=== PATIENT | male | born 2000 | race Hispanic/Latino ===

== ENCOUNTER 2019-09-12 17:11 | Emergency (ER) | payer OTHER ==
[2019-09-12] MEDS ORDERED: FAMOTIDINE 20 MG TAB ONE (18:29)
[2019-09-12] MEDS ORDERED: DIPHENHYDRAMINE 25 MG TAB/CAP ONE (18:29)
[2019-09-12] MEDS ORDERED: predniSONE 20 MG TAB ONE (18:30)
[2019-09-12 18:56] VITALS: BP 134/76; TEMP 98; O2SAT 98
--- NOTE | 2019-09-12 19:59 | EDPHYS ---
Physician Documentation [facility] Name: Garry Campos Age: 19 yrs Sex: Male : 2000 Arrival Date: 09/12/2019 Time: 17:12 Bed 14 Private MD: ED Physician Mary Hodges HPI: 09/12 18:20 This 19 yrs old Male presents to ER via Ambulatory with complaints of Hives. la1 18:20 The patient's rash thought to be caused by Contact allergy. The rash is located on the la1 body diffusely. The rash can be described as patchy, raised, urticarial. Onset: The symptoms/episode began/occurred this morning. Associated signs and symptoms: Pertinent positives: itching, Pertinent negatives: fever, nausea, swelling of lips, swelling of throat, swelling of tongue, vomiting, wheezing. Severity of symptoms: At their worst the symptoms were mild. The patient has not experienced similar symptoms in the past. Historical: - Allergies: 17:33 No Known Allergies; sv - PMHx: 17:33 None; sv - PSHx: 17:33 None; sv - Immunization history:: Flu vaccine is not up to date. - Social history:: Smoking status: Patient/guardian denies using tobacco. - Ebola Screening: : No symptoms or risks identified at this time. ROS: 18:21 Constitutional: Negative for fever, chills, and weight loss, Eyes: Negative for injury, la1 pain, redness, and discharge, ENT: Negative for injury, pain, and discharge, Neck: Negative for injury, pain, and swelling, Cardiovascular: Negative for chest pain, palpitations, and edema, Respiratory: Negative for shortness of breath, cough, wheezing, and pleuritic chest pain, Abdomen/GI: Negative for abdominal pain, nausea, vomiting, diarrhea, and constipation, Back: Negative for injury and pain, : Negative for injury, bleeding, discharge, and swelling, MS/Extremity: Negative for injury and deformity. 18:21 Skin: Positive for rash, diffusely. Exam: 18:21 Constitutional: This is a well developed, well nourished patient who is awake, alert, la1 and in no acute distress. Head/Face: Normocephalic, atraumatic. Eyes: Pupils equal round and reactive to light, extra-ocular motions intact. Periorbital areas with no swelling, redness, or edema. ENT: Mucous membranes moist. Neck: No Meningismus. Chest/axilla: Normal chest wall appearance and motion. Nontender with no deformity. No lesions are appreciated. Cardiovascular: Regular rate and rhythm with a normal S1 and S2. No gallops, murmurs, or rubs. Normal PMI, no JVD. No pulse deficits. Respiratory: Lungs have equal breath sounds bilaterally, clear to auscultation. No rales, rhonchi or wheezes noted. No increased work of breathing, no retractions or nasal flaring. Abdomen/GI: Soft, non-tender, with normal bowel sounds. No distension or tympany. No guarding or rebound. No evidence of tenderness throughout. 18:21 Skin: Appearance: Color: normal in color, pink, Temperature: normal temperature, rash a mild rash is noted, rash can be described as raised, urticarial, urticaria, and is diffusely located. Vital Signs: 17:33 BP 134 / 76; Pulse 80; Resp 16; Temp 98; Pulse Ox 98% ; Weight 63.5 kg; Height 6 ft. 0 sv in. (182.88 cm); Pain 0/10; 17:33 Body Mass Index 18.99 (63.50 kg, 182.88 cm) sv MDM: 17:30 Patient medically screened. la1 18:23 Data reviewed: vital signs, nurses notes, and as a result, I will discharge patient. la1 Data interpreted: Pulse oximetry: on room air is 98 %. Interpretation: normal. Counseling: I had a detailed discussion with the patient and/or guardian regarding: the historical points, exam findings, and any diagnostic results supporting the discharge/admit diagnosis, the need for outpatient follow up, a teamcenter solution architect, a family practitioner, to return to the emergency department if symptoms worsen or persist or if there are any questions or concerns that arise at home. Special discussion: Based on the history and exam findings, there is no indication for further emergent testing or inpatient evaluation. I discussed with the patient/guardian the need to see the teamcenter solution architect for further evaluation of the symptoms. I discussed with the patient/guardian the need to see the primary care provider for further evaluation of the symptoms. I discussed with the patient/guardian that the patient's current presentation does not indicate dosing of antibiotics. They should follow-up with their primary care provider and return if the symptoms persist or progress. Administered Medications: 18:29 Drug: Benadryl 50 mg Route: PO; aj1 18:35 Follow up: Response: No adverse reaction aj1 18:29 Drug: predniSONE 40 mg Route: PO; aj1 18:34 Follow up: Response: No adverse reaction aj1 18:29 Drug: Pepcid 20 mg Route: PO; aj1 18:34 Follow up: Response: No adverse reaction aj1 Disposition: 09/12/19 18:24 Discharged to Home. Impression: Rash and other nonspecific skin eruption. - Condition is Stable. - Discharge Instructions: Allergies, Adult, Rash, Ddze-im-Vqez, Allergies, Ends-bh-Ipcx. - Prescriptions for Benadryl 25 mg Oral Capsule - take 1 capsule by ORAL route every 6 hours As needed; 30 tablet. Prednisone 20 mg Oral Tablet - take 1 tablet by ORAL route once daily for 5 days; 5 tablet. Pepcid 20 mg Oral Tablet - take 1 tablet by ORAL route once daily for 10 days; 10 tablet. - Medication Reconciliation Form, Thank You Letter form. - Follow up: Private Physician; When: 2 - 3 days; Reason: Recheck today's complaints, Re-evaluation by your physician. Follow up: Emergency Department; When: As needed; Reason: Trouble breathing, Worsening of condition. Addendum: 09/23/2019 21:32 Co-signature as Attending Physician, Mary Hodges MD. m a2 Signatures: Natty Burton RN RN aj1 Aranza Hurtado RN RN Chase Willams, PASTE WORKER-C PASTE WORKER-[facility] Mary Hodges MD MD ma2 Corrections: (The following items were deleted from the chart) 09/12 18:38 18:24 09/12/2019 18:24 Discharged to Home. Impression: Rash and other nonspecific skin aj1 eruption. Condition is Stable. Forms are Medication Reconciliation Form, Thank You Letter, Antibiotic Education, Prescription Opioid Use. Follow up: Private Physician; When: 2 - 3 days; Reason: Recheck today's complaints, Re-evaluation by your physician. Follow up: Emergency Department; When: As needed; Reason: Trouble breathing, Worsening of condition. la1
--- NOTE | 2019-09-12 19:59 | ER ---
Nurse's Notes [facility] Name: Garry Campos Age: 19 yrs Sex: Male : 2000 Arrival Date: 09/12/2019 Time: 17:12 Bed 14 Private MD: Diagnosis: Rash and other nonspecific skin eruption Presentation: 09/12 17:32 Presenting complaint: Patient states: hives that started yesterday, denies any new use sv of medication, lotions, or soaps recently. Transition of care: patient was not received from another setting of care. Onset: The symptoms/episode began/occurred suddenly, 1 day(s) ago. Anaphylaxis evaluation, no signs or symptoms of anaphylaxis were noted. Onset of symptoms was September 11, 2019. Risk Assessment: Do you want to hurt yourself or someone else? Patient reports no desire to harm self or others. Initial Sepsis Screen: Does the patient meet any 2 criteria? No. Patient's initial sepsis screen is negative. Does the patient have a suspected source of infection? No. Patient's initial sepsis screen is negative. Care prior to arrival: None. 17:32 Method Of Arrival: Ambulatory sv 17:32 Acuity: KURT 5 sv 17:34 Note banker mason used ID#[id number]. sv Historical: - Allergies: 17:33 No Known Allergies; sv - PMHx: 17:33 None; sv - PSHx: 17:33 None; sv - Immunization history:: Flu vaccine is not up to date. - Social history:: Smoking status: Patient/guardian denies using tobacco. - Ebola Screening: : No symptoms or risks identified at this time. Screenin:30 Abuse screen: Denies threats or abuse. Denies injuries from another. Nutritional aj1 screening: No deficits noted. Tuberculosis screening: No symptoms or risk factors identified. Fall Risk None identified. Assessment: 17:30 General: Appears in no apparent distress. comfortable, Behavior is calm, cooperative, aj1 appropriate for age. Pain: Denies pain. Neuro: Level of Consciousness is awake, alert, obeys commands, Oriented to person, place, time, situation. Cardiovascular: Patient's skin is warm and dry. Respiratory: Airway is patent Respiratory effort is even, unlabored, Respiratory pattern is regular, symmetrical, Breath sounds are clear bilaterally. GI: No signs and/or symptoms were reported involving the gastrointestinal system. : No signs and/or symptoms were reported regarding the genitourinary system. EENT: No signs and/or symptoms were reported regarding the EENT system. Derm: Rash noted that is itchy, red, raised, urticaria. Musculoskeletal: No signs and/or symptoms reported regarding the musculoskeletal system. Circulation, motion, and sensation intact. 18:37 Reassessment: Patient appears in no apparent distress at this time. No changes from aj1 previously documented assessment. Patient and/or family updated on plan of care and expected duration. Pain level reassessed. Patient is alert, oriented x 3, equal unlabored respirations, skin warm/dry/pink. Vital Signs: 17:33 BP 134 / 76; Pulse 80; Resp 16; Temp 98; Pulse Ox 98% ; Weight 63.5 kg; Height 6 ft. 0 sv in. (182.88 cm); Pain 0/10; 17:33 Body Mass Index 18.99 (63.50 kg, 182.88 cm) sv ED Course: 17:12 Patient arrived in ED. as 17:12 Chase Willams FNP-C is PHCP. la1 17:12 Mary Hodges MD is Attending Physician. la1 17:30 Patient has correct armband on for positive identification. aj1 17:30 No provider procedures requiring assistance completed. aj1 17:33 Triage completed. sv 17:34 Arm band placed on. sv 18:25 Natty Burton RN is Primary Nurse. aj1 18:37 Patient did not have IV access during this emergency room visit. aj1 Administered Medications: 18:29 Drug: Benadryl 50 mg Route: PO; aj1 18:35 Follow up: Response: No adverse reaction aj1 18:29 Drug: predniSONE 40 mg Route: PO; aj1 18:34 Follow up: Response: No adverse reaction aj1 18:29 Drug: Pepcid 20 mg Route: PO; aj1 18:34 Follow up: Response: No adverse reaction aj1 Outcome: 18:24 Discharge ordered by . la1 18:38 Discharged to home ambulatory. aj1 18:38 Condition: good 18:38 Discharge instructions given to patient, Instructed on discharge instructions, follow up and referral plans. medication usage, Demonstrated understanding of instructions, follow-up care, medications, Prescriptions given X 3. 18:38 Patient left the ED. aj1 Signatures: Natty Burton RN RN aj1 Aranza Hurtado RN RN sv Martinez, Amelia as Attema, Lee, MIDDLE SCHOOL ENGLISH TEACHER-C [employer]LE SCHO[employer] ENGLISH TEACHER-[employer]1
== END 2019-09-12 18:38 | disposition home or self-care (01) ==
LOC: ER 17:11
DX: R21 Rash and other nonspecific skin eruption (principal)
CPT/HCPCS: 99283; J7512

== ENCOUNTER 2019-09-14 01:17 | Emergency (ER) | payer OTHER ==
[2019-09-14] MEDS ORDERED: PROMETHAZINE INJ 25 MG/ML AMP ONE (01:38)
[2019-09-14] MEDS ORDERED: DIPHENHYDRAMINE 50 MG/ML VIAL ONE (01:38)
[2019-09-14] MEDS ORDERED: dexAMETHasone 10 MG/ML VIAL ONE (01:38)
[2019-09-14] MEDS ORDERED: METHYLPREDNISOLONE 125 MG INJ ONE (01:38)
[2019-09-14] MEDS ORDERED: NA CHLORIDE 0.9% 1,000 ML ONE (01:38)
[2019-09-14] MEDS ORDERED: FAMOTIDINE 20 MG/2 ML VIAL IV ONE (01:39)
[2019-09-14] MEDS ORDERED: ALBUTEROL 2.5 MG/3 ML NEB SOL ONE (01:42)
--- NOTE | 2019-09-14 03:13 | ER ---
Nurse's Notes [facility] Name: Garry Campos Age: 19 yrs Sex: Male : 2000 Arrival Date: 09/14/2019 Time: :19 Bed 13 Private MD: Diagnosis: Urticaria, unspecified Presentation: 09/14 01:27 Presenting complaint: Patient states: he was seen here yesterday for the same thing, bb urticaria, but it is worse today, itching in throat, denies difficulty breathing. Transition of care: patient was not received from another setting of care. Onset: The symptoms/episode began/occurred suddenly. Anaphylaxis evaluation, no signs or symptoms of anaphylaxis were noted. Onset of symptoms was September 13, 2019. Risk Assessment: Do you want to hurt yourself or someone else? Patient reports no desire to harm self or others. Initial Sepsis Screen: Does the patient meet any 2 criteria? No. Patient's initial sepsis screen is negative. Does the patient have a suspected source of infection? No. Patient's initial sepsis screen is negative. Care prior to arrival: None. :27 Method Of Arrival: Ambulatory bb 01:27 Acuity: KURT 4 bb Triage Assessment: :30 General: Appears in no apparent distress. uncomfortable, Behavior is calm, cooperative, rr5 appropriate for age. Historical: - Allergies: : No Known Allergies; bb - Home Meds: : None [Active]; bb - PMHx: : None; bb - PSHx: : None; bb - Immunization history:: Adult Immunizations not up to date. - Social history:: Smoking status: Patient/guardian denies using tobacco. - Ebola Screening: : No symptoms or risks identified at this time. Screenin:30 Abuse screen: Denies threats or abuse. Denies injuries from another. Nutritional rr5 screening: No deficits noted. Tuberculosis screening: No symptoms or risk factors identified. Fall Risk IV access (20 points). Total Schafer Fall Scale indicates No Risk (0-24 pts). Assessment: 01:30 General: Appears in no apparent distress. comfortable, Behavior is calm, cooperative, rr5 appropriate for age. Pain: Denies pain. Neuro: Level of Consciousness is awake, alert, obeys commands, Oriented to person, place, time, situation, Appropriate for age. Cardiovascular: Capillary refill < 3 seconds Patient's skin is warm and dry. Respiratory: Airway is patent Respiratory effort is even, unlabored, Respiratory pattern is regular, symmetrical, Breath sounds are clear bilaterally. Denies shortness of breath. 01:30 GI: No signs and/or symptoms were reported involving the gastrointestinal system. : rr5 No signs and/or symptoms were reported regarding the genitourinary system. EENT: Reports itching on the throat. Derm: Skin temperature is warm Rash noted that is itchy, red, raised, urticaria, on chest, abdomen, right arm and left arm. Musculoskeletal: Circulation, motion, and sensation intact. Capillary refill < 3 seconds. 02:18 Reassessment: Patient appears in no apparent distress at this time. Patient is alert, rr5 oriented x 3, equal unlabored respirations, skin warm/dry/pink. reassess by ED provider still for observation. Patient states feeling better. Patient states symptoms have improved. 03:30 Reassessment: Patient appears in no apparent distress at this time. Patient is alert, rr5 oriented x 3, equal unlabored respirations, skin warm/dry/pink. rashes subsided, much better compare before as stated by the patient and veneer trimmer. discharge instruction given and explained without complaints made. denies any . Patient states feeling better. Patient states symptoms have improved. Vital Signs: 01:29 BP 148 / 87; Pulse 74; Resp 14 S; Temp 98.4(O); Pulse Ox 100% on R/A; Weight 63.5 kg bb (R); Height 6 ft. 0 in. (182.88 cm) (R); Pain 6/10; 02:30 BP 125 / 70; Pulse 70; Resp 16; Pulse Ox 98% on R/A; rr5 03:11 BP 112 / 60; Pulse 80; Resp 18; Pulse Ox 98% on R/A; tl2 03:40 BP 115 / 75; Pulse 75; Resp 19; Temp 98; Pulse Ox 99% on R/A; rr5 01:29 Body Mass Index 18.99 (63.50 kg, 182.88 cm) ED Course: 00:35 Inserted saline lock: 20 gauge in right antecubital area, using aseptic technique. rr5 ,using aseptic technique. inserted by lili VICKERS Blood collected. 00:35 No provider procedures requiring assistance completed. rr5 01:19 Patient arrived in ED. cl3 01:21 Hilaria Devine FNP-C is [facility]. snw 01:22 Gerard Bravo MD is Attending Physician. snw 01:29 Triage completed. bb 01:29 Arm band placed on Patient placed in an exam room, on a stretcher, on pulse oximetry. bb Family accompanied patient. 01:30 Patient has correct armband on for positive identification. Placed in gown. Bed in low rr5 position. Call light in reach. Side rails up X2. 01:30 Pulse ox on. NIBP on. rr5 01:32 Edouard Corado RN is Primary Nurse. rr5 03:35 IV discontinued, intact, bleeding controlled, No redness/swelling at site. Pressure rr5 dressing applied. Administered Medications: 01:35 CANCELLED (other intervention): Albuterol HFA Inhaler 2 puffs Inhalation once snw 01:47 Drug: NS 0.9% 1000 ml Route: IV; Rate: 1 bolus; Site: right antecubital; tl2 03:00 Follow up: Response: No adverse reaction; IV Status: Completed infusion; IV Intake: rr5 1000ml 01:47 Drug: Phenergan 12.5 mg Route: IVP; Site: right antecubital; tl2 02:50 Follow up: Response: No adverse reaction; 025 rr5 01:47 Drug: SOLU-Medrol 125 mg Route: IVP; Site: right antecubital; tl2 02:50 Follow up: Response: No adverse reaction; Marked relief of symptoms rr5 01:47 Drug: Decadron - Dexamethasone 10 mg Route: IVP; Site: right antecubital; tl2 02:40 Follow up: Response: No adverse reaction; Other; hives subsided rr5 01:47 Drug: Albuterol 2.5 mg Route: Inhalation; rr5 01:48 CANCELLED (Other Intervention Used): Benadryl 12.5 mg PO once tl2 01:48 Drug: Pepcid 20 mg Route: IVP; Site: right antecubital; tl2 02:40 Follow up: Response: No adverse reaction; Other; hives subsided rr5 01:49 Drug: Benadryl 12.5 mg Route: IVP; Site: right antecubital; tl2 02:40 Follow up: Response: No adverse reaction; Other; hives subsided. rr5 01:59 CANCELLED (Duplicate Order): Benadryl 12.5 mg IVP once bb 03:33 Drug: predniSONE 40 mg Route: PO; rr5 03:34 Follow up: Response: Medication administered at discharge. rr5 Intake: 03:00 IV: 1000ml; Total: 1000ml. rr5 Outcome: 03:12 Discharge ordered by MD. chahal 03:35 Discharged to home ambulatory, with family. rr5 03:35 Condition: stable 03:35 Discharge instructions given to patient, family, Instructed on discharge instructions, follow up and referral plans. medication usage, Demonstrated understanding of instructions, follow-up care, medications, Prescriptions given X 4. 03:38 Patient left the ED. rr5 Signatures: Gerard Bravo MD MD cha Therrien, Shelly, [employer] POWER PLANT OPERATOR-C [employer] POWER PLANT OPERATOR-[employer] Karen Landeros RN RN bb Lili Silva RN RN tl2 Edouard Corado RN RN rr5 Lisandra Dave cl3 Corrections: (The following items were deleted from the chart) 04:33 03:40 IV discontinued, intact, bleeding controlled, No redness/swelling at site. rr5 Pressure dressing applied, rr5 04:37 01:30 EENT: No signs and/or symptoms were reported regarding the EENT system. rr5 rr5
--- NOTE | 2019-09-14 03:15 | EDPHYS ---
Physician Documentation [facility] Name: Garry Campos Age: 19 yrs Sex: Male : 2000 Arrival Date: 09/14/2019 Time: 01:19 Bed 13 Private MD: ED Physician Gerard Bravo HPI: 09/14 01:31 This 19 yrs old Male presents to ER via Ambulatory with complaints of Allergic snw Reaction. 01:31 The patient presents with itching, rash, redness of skin, diarrhea. Onset: The snw symptoms/episode began/occurred suddenly, just prior to arrival, and became worse pt seen for same in this ED 09/12/19, home with pepcid, prednisone, benadryl. Associated signs and symptoms: Pertinent positives: rash, diarrhea. Possible causes: The patient has no known obvious cause for the symptoms. At home the patient or guardian has treated the symptoms with as noted. Severity of symptoms: At their worst the symptoms were severe in the emergency department the symptoms are unchanged. The patient has experienced a previous episode, approximately 1 days ago. The patient has been recently seen at the [facility] Emergency Department, yesterday, for similar complaints. Historical: - Allergies: : No Known Allergies; bb - Home Meds: : None [Active]; bb - PMHx: : None; bb - PSHx: : None; bb - Immunization history:: Adult Immunizations not up to date. - Social history:: Smoking status: Patient/guardian denies using tobacco. - Ebola Screening: : No symptoms or risks identified at this time. ROS: 01:29 Constitutional: Negative for fever, chills, and weight loss, Eyes: Negative for injury, snw pain, redness, and discharge, Neck: Negative for injury, pain, and swelling, Cardiovascular: Negative for chest pain, palpitations, and edema, Respiratory: Negative for shortness of breath, cough, wheezing, and pleuritic chest pain, Back: Negative for injury and pain, : Negative for injury, bleeding, discharge, and swelling, MS/Extremity: Negative for injury and deformity, Neuro: Negative for headache, weakness, numbness, tingling, and seizure. :29 ENT: Positive for scratchy throat. 01:29 Abdomen/GI: Positive for diarrhea, Negative for nausea, vomiting. 01:29 Skin: Positive for erythema, swelling, diffusely, urticaria . Exam: 01:28 Constitutional: This is a well developed, well nourished patient who is awake, alert, snw and in no acute distress. Head/Face: Normocephalic, atraumatic. Eyes: Pupils equal round and reactive to light, extra-ocular motions intact. Lids and lashes normal. Conjunctiva and sclera are non-icteric and not injected. Cornea within normal limits. Periorbital areas with no swelling, redness, or edema. 01:28 Neck: Trachea midline, no thyromegaly or masses palpated, and no cervical lymphadenopathy. Supple, full range of motion without nuchal rigidity, or vertebral point tenderness. No Meningismus. Chest/axilla: Normal chest wall appearance and motion. Nontender with no deformity. No lesions are appreciated. Cardiovascular: Regular rate and rhythm with a normal S1 and S2. No gallops, murmurs, or rubs. Normal PMI, no JVD. No pulse deficits. Respiratory: Lungs have equal breath sounds bilaterally, clear to auscultation and percussion. No rales, rhonchi or wheezes noted. No increased work of breathing, no retractions or nasal flaring. Abdomen/GI: Soft, non-tender, with normal bowel sounds. No distension or tympany. No guarding or rebound. No evidence of tenderness throughout. Back: No spinal tenderness. No costovertebral tenderness. Full range of motion. MS/ Extremity: Pulses equal, no cyanosis. Neurovascular intact. Full, normal range of motion. Neuro: Awake and alert, GCS 15, oriented to person, place, time, and situation. Cranial nerves II-XII grossly intact. Motor strength 5/5 in all extremities. Sensory grossly intact. Cerebellar exam normal. Normal gait. Psych: Awake, alert, with orientation to person, place and time. Behavior, mood, and affect are within normal limits. 01:28 ENT: TM's: are normal, Nose: is normal, Posterior pharynx: Airway: normal, Tonsils: are normal in appearance, swelling, is not appreciated, erythema, that is mild, Voice: is normal. 01:28 Skin: Appearance: flushing, noted on the generalized, that are moderate, urticaria. Vital Signs: 01:29 BP 148 / 87; Pulse 74; Resp 14 S; Temp 98.4(O); Pulse Ox 100% on R/A; Weight 63.5 kg bb (R); Height 6 ft. 0 in. (182.88 cm) (R); Pain 6/10; 02:30 BP 125 / 70; Pulse 70; Resp 16; Pulse Ox 98% on R/A; rr5 03:11 BP 112 / 60; Pulse 80; Resp 18; Pulse Ox 98% on R/A; tl2 03:40 BP 115 / 75; Pulse 75; Resp 19; Temp 98; Pulse Ox 99% on R/A; rr5 01:29 Body Mass Index 18.99 (63.50 kg, 182.88 cm) bb MDM: 01:31 Patient medically screened. [facility] 02:20 Data reviewed: vital signs, nurses notes. Data interpreted: Pulse oximetry: on room air snw is 100 %. Interpretation: normal. Counseling: I had a detailed discussion with the patient and/or guardian regarding: the historical points, exam findings, and any diagnostic results supporting the discharge/admit diagnosis, the need for outpatient follow up, to return to the emergency department if symptoms worsen or persist or if there are any questions or concerns that arise at home. Response to treatment: the patient's symptoms have markedly improved after treatment, patient is well hydrated. Administered Medications: 01:35 CANCELLED (other intervention): Albuterol HFA Inhaler 2 puffs Inhalation once snw 01:47 Drug: NS 0.9% 1000 ml Route: IV; Rate: 1 bolus; Site: right antecubital; tl2 03:00 Follow up: Response: No adverse reaction; IV Status: Completed infusion; IV Intake: rr5 1000ml 01:47 Drug: Phenergan 12.5 mg Route: IVP; Site: right antecubital; tl2 02:50 Follow up: Response: No adverse reaction; 025 rr5 01:47 Drug: SOLU-Medrol 125 mg Route: IVP; Site: right antecubital; tl2 02:50 Follow up: Response: No adverse reaction; Marked relief of symptoms rr5 01:47 Drug: Decadron - Dexamethasone 10 mg Route: IVP; Site: right antecubital; tl2 02:40 Follow up: Response: No adverse reaction; Other; hives subsided rr5 01:47 Drug: Albuterol 2.5 mg Route: Inhalation; rr5 01:48 CANCELLED (Other Intervention Used): Benadryl 12.5 mg PO once tl2 01:48 Drug: Pepcid 20 mg Route: IVP; Site: right antecubital; tl2 02:40 Follow up: Response: No adverse reaction; Other; hives subsided rr5 01:49 Drug: Benadryl 12.5 mg Route: IVP; Site: right antecubital; tl2 02:40 Follow up: Response: No adverse reaction; Other; hives subsided. rr5 01:59 CANCELLED (Duplicate Order): Benadryl 12.5 mg IVP once bb 03:33 Drug: predniSONE 40 mg Route: PO; rr5 03:34 Follow up: Response: Medication administered at discharge. rr5 Disposition: 09/14/19 03:12 Discharged to Home. Impression: Urticaria, unspecified. - Condition is Stable. - Discharge Instructions: Allergies, Adult, Hives. - Prescriptions for Benadryl 25 mg Oral Capsule - take 2 capsule by ORAL route every 6 hours As needed; 36 tablet. Pepcid 20 mg Oral Tablet - take 1 tablet by ORAL route every 12 hours for 10 days; 20 tablet. Prednisone 20 mg Oral Tablet - take 2 tablet by ORAL route once daily for 5 days; 10 tablet. EpiPen 0.3 mg Injection auto- injector - inject 1 pen by INTRAMUSCULAR route one time Inject into the outer portion of the thigh, through clothing if necessary. Indicated in the emergency treatment of allergic reactions; 1 Container. - Medication Reconciliation Form, Thank You Letter, Antibiotic Education, Prescription Opioid Use, Work release form form. - Follow up: Emergency Department; When: As needed; Reason: Worsening of condition. Follow up: Private Physician; When: 2 - 3 days; Reason: Recheck today's complaints, Continuance of care, Re-evaluation by your physician. - Problem is an ongoing problem. - Symptoms have improved. Addendum: 09/17/2019 09:24 Co-signature as Attending Physician, Gerard Bravo MD I agree with the assessment and c feliz plan of care. Signatures: Gerard Bravo MD MD cha Therrien, Shelly, LILLIE-C [employer]-[place] Karen Landeros, RN RN bb Lili Silva, RN RN tl2 Edouard Corado, RN RN rr5 Corrections: (The following items were deleted from the chart) 09/14 01:35 01:35 Albuterol HFA Inhaler 2 puffs Inhalation once ordered. snw snw 01:48 01:27 Benadryl 12.5 mg PO once ordered. snw tl2 01:59 01:49 Benadryl 12.5 mg IVP once ordered. sn bb 03:38 03:12 09/14/2019 03:12 Discharged to Home. Impression: Urticaria, unspecified. rr5 Condition is Stable. Discharge Instructions: Allergies, Adult, Hives. Prescriptions for Benadryl 25 mg Oral Capsule - take 2 capsule by ORAL route every 6 hours As needed; 36 tablet, Pepcid 20 mg Oral Tablet - take 1 tablet by ORAL route every 12 hours for 10 days; 20 tablet, Prednisone 20 mg Oral Tablet - take 2 tablet by ORAL route once daily for 5 days; 10 tablet, EpiPen 0.3 mg Injection auto-injector - inject 1 pen by INTRAMUSCULAR route one time Inject into the outer portion of the thigh, through clothing if necessary. Indicated in the emergency treatment of allergic reactions; 1 Container. and Forms are Work release form, Medication Reconciliation Form, Thank You Letter, Antibiotic Education, Prescription Opioid Use. Follow up: Emergency Department; When: As needed; Reason: Worsening of condition. Follow up: Private Physician; When: 2 - 3 days; Reason: Recheck today's complaints, Continuance of care, Re-evaluation by your physician. Problem is an ongoing problem. Symptoms have improved. tirso
[2019-09-14] MEDS ORDERED: predniSONE 20 MG TAB ONE (03:28)
[2019-09-14 03:44] VITALS: TEMP 98.4
[2019-09-14 03:46] VITALS: BP 112/60; O2SAT 98
== END 2019-09-14 03:38 | disposition home or self-care (01) ==
LOC: ER 01:17
DX: L50.9 Urticaria, unspecified (principal)
CPT/HCPCS: 96361; 96375; 96374; 99284; J2550; J1200; J7512; J1100; J7030; J2930